=== PATIENT | male | born 1990 | race African-American/Black ===

== ENCOUNTER 2018-09-11 21:08 | Emergency (ER) | payer SELFPAY ==
[~2018-09-11] VITALS: Ht 180.3 cm; Wt 86.6 kg
[2018-09-11] MEDS ORDERED: NKM (21:19)
[2018-09-11 21:21] VITALS: BP 131/71
--- NOTE | 2018-09-11 21:21 | NUR ---
ED Nurse Note: Pt arrived ED from home, c/o pt was worried about having Sex transmitted disese and was asked by girl friend to come to ED for check up. Pt is A/O X 4. Vital signs stable at this time, waitng for orders.
[2018-09-11] MEDS ORDERED: Azithromycin 250mg tab ORAL ONE (21:30)
[2018-09-11] MEDS ORDERED: Lidocaine 1% MPF 10mg/ml 5ml INJ ONE (21:30)
--- NOTE | 2018-09-11 21:32 | Emergency Room Report ---
History of Present Illness General Chief Complaint: Male Urogenital Problems Source: Patient Present Illness HPI Is a 28-year-old male with no past medical history. He is here for STD check. His girlfriend was here earlier this morning. She had pelvic pain and workup was negative. She was treated for presumptive STD and possible early PID. Patient came in because of this. Denies any other complaint. No pain or discharge. Allergies: Coded Allergies: Dust (Verified Allergy, Unknown, 09/11/18) Uncoded Allergies: CATS (Allergy, Unknown, 09/11/18) Patient History Past Medical History: none, see triage record, old chart reviewed Past Surgical History: none Pertinent Family History: none Social History: Reports: drug use - Marijuana; Denies: smoking Immunizations: other Reviewed Nursing Documentation: PMH: Agreed; PSxH: Agreed Nursing Documentation-PMH Past Medical History: No Stated History Review of Systems Eye: Denies: eye pain, blurred vision ENT: Denies: ear pain, nose congestion, throat swelling Respiratory: Denies: cough, shortness of breath Cardiovascular: Denies: chest pain, palpitations Gastrointestinal: Denies: abdominal pain, diarrhea, nausea, vomiting Musculoskeletal: Denies: back pain, joint pain Skin: Denies: rash Neurological: Denies: headache, numbness Endocrine: Denies: increased thirst, increased urine Hematologic/Lymphatic: Denies: easy bruising All Other Systems: negative except mentioned in HPI Physical Exam Vital Signs Date Time Temp Pulse Resp B/P (MAP) Pulse Ox O2 Delivery O2 Flow Rate FiO2 09/11/18 21:14 97.7 65 16 135/76 98 Room Air vitals normal Sp02 EP Interpretation: reviewed, normal General Appearance: well appearing, no apparent distress, alert Head: normocephalic, atraumatic Eyes: bilateral eye PERRL, bilateral eye EOMI ENT: hearing grossly normal, normal pharynx Neck: full range of motion, supple, no meningismus Respiratory: chest non-tender, lungs clear, normal breath sounds Cardiovascular #1: regular rate, rhythm, no murmur Gastrointestinal: normal bowel sounds, non tender, no mass, no organomegaly, no bruit, non-distended Musculoskeletal: back normal, gait/station normal, normal range of motion Psychiatric: mood/affect normal Skin: warm/dry Medical Decision Making Diagnostic Impression: Primary Impression: Possible exposure to STD ER Course Patient with possible exposure to STD. Rocephin and azithromycin given. We'll discharge home. Last Vital Signs Date Time Temp Pulse Resp B/P (MAP) Pulse Ox O2 Delivery O2 Flow Rate FiO2 09/11/18 21:14 97.7 65 16 135/76 98 Room Air Status: unchanged Disposition: HOME, SELF-CARE Additional Instructions: Follow-up with your doctor in 7 days. Return if symptom worsen. Miguel Fraser MD Sep 11, 2018 21:32
[2018-09-11 21:59] VITALS: BP 134/72
--- NOTE | 2018-09-11 21:59 | NUR ---
ER DISCHARGE NOTE: Patient is cleared to be discharged per Dr. Fraser. Meds given as ordered. Pt is A/O x4 on room air with stable vital signs. Pt was given dc and prescription instructions, pt was able to verbalize understanding, pt ID band removed . pt is able to ambulate with steady gait, pt took all belongings.
== END 2018-09-11 21:59 | disposition home or self-care (01) ==
LOC: EMR 21:30
DX: R10.2 Pelvic and perineal pain (principal)
CPT/HCPCS: 96372; 99283; J0696

== ENCOUNTER 2019-06-25 12:45 | Emergency (ER) | payer SELFPAY ==
[~2019-06-25] VITALS: Ht 180.3 cm; Wt 79.4 kg
[~2019-06-25 12:45] MED LIST: IBUPROFEN600 MG ORAL; LIDODERM700 M1 TOPIC; NKM; ROBAXIN-750750 MG PO
--- NOTE | 2019-06-25 13:09 | Emergency Room Report ---
History of Present Illness General Chief Complaint: Earache Source: Patient Present Illness HPI 29-year-old male with no significant past medical history here complaining of 2 weeks of sore throat and congestion as well as 3 days of left ear pain rating it 7 out of 10 without radiation. Denies any dizziness, vertigo, hearing loss, nausea vomiting at this time. Complains of a productive cough however denies shortness of breath, chest pain, palpitation, abdominal pain, nausea vomiting. Has been taking [id number] decongestants with minimal relief. Patient denies tobacco smoke, alcohol use however does admit to using marijuana. Denies any recent water exposure. Allergies: Coded Allergies: Dust (Verified Allergy, Unknown, 09/11/18) Uncoded Allergies: CATS (Allergy, Unknown, 09/11/18) Patient History Past Medical History: see triage record Past Surgical History: none Pertinent Family History: none Immunizations: UTD Reviewed Nursing Documentation: PMH: Agreed; PSxH: Agreed Nursing Documentation-PMH Past Medical History: No History, Except For Hx Asthma: Yes Review of Systems All Other Systems: negative except mentioned in HPI Physical Exam Vital Signs Date Time Temp Pulse Resp B/P (MAP) Pulse Ox O2 Delivery O2 Flow Rate FiO2 06/25/19 12:58 98.4 64 15 136/87 (103) 99 Room Air Sp02 EP Interpretation: reviewed, normal General Appearance: no apparent distress, alert, GCS 15, non-toxic Head: normocephalic, atraumatic Eyes: bilateral eye normal inspection, bilateral eye PERRL ENT: hearing grossly normal, normal voice, nasal congestion, pharyngeal erythema, other - Left TM bulging, no mastoiditis noted Neck: full range of motion, supple, no meningismus, no bony tend, supple/symm/ no masses Respiratory: chest non-tender, lungs clear, normal breath sounds, no rhonchi, no wheezing, speaking full sentences Cardiovascular #1: regular rate, rhythm, no edema, no murmur Gastrointestinal: non tender, soft Musculoskeletal: back normal Neurologic: alert, oriented Psychiatric: judgement/insight normal, memory normal, mood/affect normal, no suicidal/homicidal ideation Skin: no rash Lymphatic: no adenopathy Medical Decision Making PA Attestation All diagnoses and treatment plans were reviewed and discussed with my supervising physician Dr. Xavier Diagnostic Impression: Primary Impression: Sinusitis Additional Impression: Otitis media ER Course 29-year-old male with no significant past medical history here complaining of 2 weeks of sore throat and congestion as well as 3 days of left ear pain rating it 7 out of 10 without radiation. Denies any dizziness, vertigo, hearing loss, nausea vomiting at this time. Complains of a productive cough however denies shortness of breath, chest pain, palpitation, abdominal pain, nausea vomiting. Has been taking [id number]-[id number]-bqftomm decongestants with minimal relief. Patient denies tobacco smoke, alcohol use however does admit to using marijuana. Denies any recent water exposure. Ddx considered but are not limited to: strep pharyngitis, URI, tonsillitis, peritonsillar abscess, influenza, sinusitis, otitis media, otitis externa, mastoiditis Vital signs: are WNL, pt. is afebrile H&PE are most consistent with: Sinusitis, otitis media, ear infection secondary to sinus drainage ORDERS: Augmentin, Phenergan, Flonase ED INTERVENTIONS: None required at this time. DISCHARGE: At this time pt. is stable for d/c to home. Will provide printed patient care instructions, and any necessary prescriptions. Care plan and follow up instructions have been discussed with the patient prior to discharge. Patient to follow-up with her primary care provider, as well as ENT, if worsening symptoms return to the emergency room Last Vital Signs Date Time Temp Pulse Resp B/P (MAP) Pulse Ox O2 Delivery O2 Flow Rate FiO2 06/25/19 12:58 98.4 64 15 136/87 (103) 99 Room Air Disposition: HOME, SELF-CARE Condition: Stable Scripts Fluticasone Propionate (Flonase Allergy Relief) 9.9 Ml [place].susp 2 PUFFS NS BID, #10 ML Prov: Chandler Castro 06/25/19 Promethazine Hcl (PROMETHAZINE HCL*) 6.25 Mg/5 Ml Syrup 5 ML ORAL Q6H, #120 ML 0 Refills Prov: Chandler Castro 06/25/19 Amoxicillin/Potassium Clav 875-125* (AUGMENTIN 875-125 TABLET*) 1 Each Tablet 1 TAB ORAL TWICE A DAY for 10 Days, #20 TAB Prov: Chandler Castro 06/25/19 Patient Instructions: Otitis Media, Adult, [id number], Sinusitis, Adult, Easy -to-Read Additional Instructions: Take medication as directed, follow-up with your primary care provider, if worsening symptoms return to the emergency room Chandler Castro Jun 25, 2019 13:09
[2019-06-25] MEDS ORDERED: FLONASE ALLERG9.9 ML NS (13:10)
[2019-06-25] MEDS ORDERED: AUGMENTIN 875-1 EAC1 ORAL (13:10)
[2019-06-25] MEDS ORDERED: PROMETHAZI6.25 MG/1 ORAL (13:10)
[2019-06-25 13:13] VITALS: BP 136/87
[2019-06-25 13:21] VITALS: BP 136/87
== END 2019-06-25 13:21 | disposition home or self-care (01) ==
LOC: EMR 13:15
DX: J32.9 Chronic sinusitis, unspecified (principal); H66.92 Otitis media, unspecified, left ear; J45.909 Unspecified asthma, uncomplicated; Z91.09 Other allergy status, other than to drugs and biological substances
CPT/HCPCS: 99282